=== PATIENT | female | born 1995 | race Caucasian/White ===

== ENCOUNTER 2016-09-28 20:31 | Emergency (ER) | payer BC, OTHER ==
[~2016-09-28] VITALS: Ht 170.2 cm; Wt 60.3 kg
[2016-09-28 20:48] VITALS: TEMP 36.8; Ht 170.2 cm; Wt 60.3 kg
[2016-09-28] MEDS ORDERED: CEFTRIAXONE SOD INJ 1 GM ADDVIAL IV STA (21:05)
[2016-09-28] MEDS ORDERED: KETOROLAC TROMETHAMINE 30 MG/ML VIAL IV STA (21:05)
[2016-09-28] MEDS ORDERED: AZITHROMYCIN 250 MG TAB PO STA (21:05)
[2016-09-28] MEDS ORDERED: SODIUM CHLORIDE 0.9% 1000ML 1,000 ML IV STA (21:05)
[2016-09-28 21:32] LABS: BASO % 0.5 %; BASO ABS # 0.05 K/uL (0-0.2); COMPLETE YES; EOS % 3.8 %; HEMATOCRIT 45.2 % (37-47); IG% 0.3 %; MEAN CELL VOLUME 86.6 fL (80-100); MEAN CORPUSCULAR HEMOGLOBIN 29.3 pg (25-34); MEAN CORPUSCULAR HGB CONC 33.8 g/dl (32-36); MEAN PLATELET VOLUME 10.3 fL (7.4-10.4); MONO % 7.8 %; NEUT % 67.6 %; PLATELET COUNT 256 K/uL (130-400); RED BLOOD COUNT 5.22 M/uL (4.2-5.4); WHITE BLOOD COUNT 10.02 K/uL (4.8-10.8)
[2016-09-28] MEDS ORDERED: BCPILLS PO (21:36)
[2016-09-28] MEDS ORDERED: ISOT1CAP PO (21:37)
[2016-09-28] MEDS ORDERED: ISOT1CAP7 PO (21:44)
[2016-09-28] MEDS ORDERED: ISOT30CA PO (21:45)
[2016-09-28] MEDS ORDERED: NITR1CAP32 PO (21:47)
[2016-09-28 21:48] LABS: ALT/SGPT 16 U/L (12-78); BLOOD UREA NITROGEN 7 mg/dl (7-18); BUN/CREATININE RATIO 6.4 (10-20); CALCIUM 8.9 mg/dl (8.5-10.1); CARBON DIOXIDE 27 mmol/L (21-32); CHLORIDE 104 mmol/L (98-107); GLUCOSE 82 mg/dl (70-99); POTASSIUM 3.2 mmol/L (3.5-5.1); SODIUM 139 mmol/L (136-145)
[2016-09-28] MEDS ORDERED: PHEN-775 PO (21:49)
[2016-09-28 21:51] LABS: ALKALINE PHOSPHATASE 77 U/L (45-117); AST/SGOT 16 U/L (15-37)
[2016-09-28] MEDS ORDERED: SULF800T23 PO (21:51)
[2016-09-28 22:00] LABS: MANUAL MICROSCOPIC REQUIRED? YES; REVIEW REQ? NO
[2016-09-28] MEDS ORDERED: POTASSIUM CHLORIDE 10 MEQ TABCR PO STA (22:00)
[2016-09-28 22:01] LABS: SULFASALICYLIC ACID POS (NEG); URINE APPEARANCE CLOUDY (CLEAR); URINE COLOR ORANGE
[2016-09-28 22:02] LABS: URINE SPECIFIC GRAVITY 1.007 (1.000-1.030)
[2016-09-28 22:05] LABS: URINE RBC >30 /hpf (0-4)
[2016-09-28 22:06] LABS: URINE WBC >30 /hpf (0-5)
[2016-09-28 22:07] LABS: URINE BACTERIA 2+ (NEG); ZZUR CULT IF INDIC CLEAN CATCH YES
--- NOTE | 2016-09-28 22:17 | EMERGENCY ROOM VISIT NOTE ---
History Report prepared by Alea: Zully Figueroa Under the Supervision of: Dr. Neptali Herron M.D. First contact with patient: 20:54 Chief Complaint: URINARY SYMPTOMS Stated Complaint: UTI, MEDS ARE NOT WORKING Nursing Triage Summary: Patient having burning when she urinates, mid lower abdominal pain, frequent urination History of Present Illness The patient is a 21 year old female who presents to the Emergency Room with complaints of an episode of urinary symptoms starting three days ago. The patient states she has had urinary tract infections before and believed that this was one. She reports that she went to [facility] and they gave her medication for a urinary tract infection. She states that usually after one to two doses, the medication starts to work. She reports that as of yesterday they weren't working. She states that she then went back to [facility] to get a different medication that she reports still has provided no relief. She reports that she has spasms in her pelvic region when she urinates and that it cast while urinating. The patient denies the chance of this being an STD, retaining a tampon, back pain, past abdominal surgery, and chance of . The patient also reports that 30 seconds after urinating she experiences a throbbing feeling for 15 seconds. She notes that she is currently on her period and does take a medication for her acne. The patient currently rates her pain as a 4/10 in severity. Source of History: patient Onset: three days ago Position: other (global) Symptom Intensity: 4/10 Quality: other (global) Timing: other (episode) Associated Symptoms: No back pain Note: The patient complains of pelvic spasms and throbbing. Review of Systems See HPI for pertinent positives & negatives. A total of 10 systems reviewed and were otherwise negative. Past Medical & Surgical Medical Problems: (1) Asthma (2) Hx: UTI (urinary tract infection) Surgical Problems: (1) History of wisdom tooth extraction Family History No pertinent family history Social History Smoking Status: Never Smoker Smokeless Tobacco Use: No Alcohol Use: occasionally Marital Status: single Housing Status: lives with roommate Occupation Status: [employer] Current/Historical Medications Scheduled Control Pills ( Control Pills), 1 TAB PO DAILY Ciprofloxacin Hcl (Cipro), 1 TAB PO BID Isotretinoin (Myorisan), 40 MG PO DAILY Nitrofurantoin Macrocrystals (Macrodantin), 100 MG PO BID Phenazopyridine Hcl (Pyridium), 200 MG PO TID Sulfa/Trimethoprim (Bactrim Ds 800MG/160MG), 1 TAB PO BID Allergies Uncoded Allergies: NKA (Allergy, Unknown, 02/18/03) Physical Exam Vital Signs Date Time Temp Pulse Resp B/P (MAP) Pulse Ox O2 Delivery O2 Flow Rate FiO2 09/28/16 23:38 74 18 132/90 97 09/28/16 23:19 65 09/28/16 22:00 92 18 123/76 100 Room Air 09/28/16 20:48 36.8 87 18 118/75 97 Room Air Physical Exam GENERAL: Patient is a healthy-appearing well-nourished HEAD: Normocephalic atraumatic EYES: Ocular movements intact pupils equal and react to light OROPHARYNX mucous membranes are moist no exudates present no erythema or edema present NECK: Supple no nuchal rigidity CHEST: Good equal expansion LUNGS: Clear and equal to auscultation CARDIAC: Normal S1 and S2 ABDOMEN: Soft nontender no guarding BACK: No CVA tenderness EXTREMITIES: No pain upon palpation normal muscle strength in all groups no clubbing cyanosis or edema NEURO: Patient is following commands and answering questions appropriately. Alert and oriented x3 Cranial Nerves 2-12 grossly intact Medical Decision & Procedures ER Provider Diagnostic Interpretation: Radiology results as stated below per my review and radiologist interpretation: (RENAL)RETROPERITONEA COMP HISTORY: Pain Pt c/o bladder spasms COMPARISON: None. FINDINGS: Right kidney: Maximum dimension 10.0 cm Normal corticomedullary differentiation and cortical thickness. No evidence for hydronephrosis Left kidney: Maximum dimension 10.8 cm. Normal corticomedullary differentiation and cortical thickness. No evidence for hydronephrosis Bladder: Mild/moderate bladder wall thickening with a small amount of bladder debris IMPRESSION: 1. Normal renal ultrasound. 2. Mild/moderate bladder wall thickening with a small amount of contained debris The above report was generated using voice recognition software. It may contain grammatical, syntax or spelling errors. Electronically signed by: Amadou Conrad M.D. 09/28/2016 10:43 PM Dictated Date/Time: 09/28/2016 10:42 PM KUB CLINICAL HISTORY: Pt c/o bladed spasms pain COMPARISON STUDY: No previous studies for comparison. FINDINGS: Nonobstructive bowel pattern. Minimal nonobstructive ileus. Vague multiplicity of calcifications in the right upper quadrant. This may relate to bowel content, versus gallbladder or pancreas. No significant pelvic calcifications. IMPRESSION: 1. Punctate calcifications superior to the right kidney this may be simply bowel content, although gallbladder or pancreatic calcifications may present in similar fashion. 2. Minimal nonobstructive ileus. The above report was generated using voice recognition software. It may contain grammatical, syntax or spelling errors. Electronically signed by: Amadou Conrad M.D. 09/28/2016 10:55 PM Dictated Date/Time: 09/28/2016 10:53 PM Laboratory Results 09/28/16 21:15 Red Blood Count 5.22, Mean Corpuscular Volume 86.6, Mean Corpuscular Hemoglobin 29.3, Mean Corpuscular Hemoglobin Concent 33.8, Mean Platelet Volume 10.3, Neutrophils (%) (Auto) 67.6, Lymphocytes (%) (Auto) 20.0, Monocytes (%) (Auto) 7.8, Eosinophils (%) (Auto) 3.8, Basophils (%) (Auto) 0.5, Neutrophils # (Auto) 6.78, Lymphocytes # (Auto) 2.00, Monocytes # (Auto) 0.78, Eosinophils # (Auto) 0.38, Basophils # (Auto) 0.05 09/28/16 21:15 Test 09/28/16 21:15 White Blood Count 10.02 K/uL (4.8-10.8) Red Blood Count 5.22 M/uL (4.2-5.4) Hemoglobin 15.3 g/dL (12.0-16.0) Hematocrit 45.2 % (37-47) Mean Corpuscular Volume 86.6 fL (80-100) Mean Corpuscular Hemoglobin 29.3 pg (25-34) Mean Corpuscular Hemoglobin Concent 33.8 g/dl (32-36) Platelet Count 256 K/uL (130-400) Mean Platelet Volume 10.3 fL (7.4-10.4) Neutrophils (%) (Auto) 67.6 % Lymphocytes (%) (Auto) 20.0 % Monocytes (%) (Auto) 7.8 % Eosinophils (%) (Auto) 3.8 % Basophils (%) (Auto) 0.5 % Neutrophils # (Auto) 6.78 K/uL (1.4-6.5) Lymphocytes # (Auto) 2.00 K/uL (1.2-3.4) Monocytes # (Auto) 0.78 K/uL (0.11-0.59) Eosinophils # (Auto) 0.38 K/uL (0-0.5) Basophils # (Auto) 0.05 K/uL (0-0.2) RDW Standard Deviation 40.0 fL (36.4-46.3) RDW Coefficient of Variation 12.5 % (11.5-14.5) Immature Granulocyte % (Auto) 0.3 % Immature Granulocyte # (Auto) 0.03 K/uL (0.00-0.02) Urine Color ORANGE Urine Appearance CLOUDY (CLEAR) Urine pH (4.5-7.5) Urine Specific [place] 1.007 (1.000-1.030) Urine Protein POS (NEG) Urine Glucose (UA) (NEG) Urine Ketones (NEG) Urine Occult Blood (NEG) Urine Nitrite (NEG) Urine Bilirubin (NEG) Urine Urobilinogen (NEG) Urine Leukocyte Esterase (NEG) Urine RBC >30 /hpf (0-4) Urine WBC >30 /hpf (0-5) Urine Epithelial Cells 5-10 /lpf (0-5) Urine Renal Cells 0-5 /lpf (FEW) Urine Bacteria 2+ (NEG) Urine Test NEG (NEG) Anion Gap 8.0 mmol/L (3-11) Est Creatinine Clear Calc Drug Dose 77.0 ml/min Estimated GFR () 83.1 Estimated GFR (Non- 71.7 BUN/Creatinine Ratio 6.4 (10-20) Calcium Level 8.9 mg/dl (8.5-10.1) Total Bilirubin 0.4 mg/dl (0.2-1) Direct Bilirubin < 0.1 mg/dl (0-0.2) Aspartate Amino Transf (AST/SGOT) 16 U/L (15-37) Alanine Aminotransferase (ALT/SGPT) 16 U/L (12-78) Alkaline Phosphatase 77 U/L (45-117) Total Protein 7.5 gm/dl (6.4-8.2) Albumin 3.7 gm/dl (3.4-5.0) Lipase 272 U/L (73-393) Labs reviewed by ED physician. Medications Administered Medications (Trade) Dose Ordered Sig/Raghu Route Start Time Stop Time Status Last Admin Dose Admin Sodium Chloride 1,000 ml @ 999 mls/hr Q1H1M STAT IV 09/28/16 21:05 09/28/16 22:05 DC 09/28/16 21:21 999 MLS/HR Ketorolac Tromethamine (Toradol Inj) 30 mg NOW STAT IV 09/28/16 21:05 09/28/16 21:07 DC 09/28/16 21:34 30 MG Ceftriaxone Sodium (Rocephin Inj) 1 gm NOW STAT IV 09/28/16 21:05 09/28/16 21:07 DC 09/28/16 21:34 1 GM Azithromycin (Zithromax Tab) 1,000 mg NOW STAT PO 09/28/16 21:05 09/28/16 21:07 DC 09/28/16 21:33 1,000 MG Potassium Chloride (Klor-Con M10) 80 meq NOW STAT PO 09/28/16 22:00 09/28/16 22:01 DC 09/28/16 22:09 80 MEQ ED Course 2058: Past medical records reviewed. The patient was evaluated in room B9. A complete history and physical examination was performed. 2104: Ordered Zithromax Tab 1000 mg PO, Rocephin Inj 1 gm IV, Toradol Inj 30 mg IV, NSS 1000 ml @ 999 mls/hr IV. 0: Ordered Potassium Chloride 80 meq PO. 2322: Upon reexamination the patient is resting comfortably. I discussed results and treatment plan with the patient. She verbalizes agreement and understanding. The patient is ready for discharge. Medical Decision Medication Reconciliation: I attest that I have personally reviewed the patient' s current medication list Blood Pressure Screening: Patient was found to have normal blood pressure on screening and does not require follow up. Differential diagnosis: Etiologies such as appendicitis, diverticulitis, PUD, biliary pathology, UTI, pancreatitis, obstruction, mesenteric ischemia, aortic pathology, infections, inflammatory bowel disease, renal colic, as well as others were entertained. This is a 21-year-old female who presents emergency department complaining of urinary tract infection that has not gotten better. The patient is still having a large amount of stinging and burning despite being on Bactrim for at least 24 hours and another antibiotic for that. Based on the patient's complaints an IV was established and the patient was given normal saline bolus along with Rocephin. She was sent for an ultrasound of her kidneys and bladder. The patient does have debris in her bladder. She was also given azithromycin 1 g. Impression Primary Impression: Urinary tract infection Scribe Attestation The scribe's documentation has been prepared under my direction and personally reviewed by me in its entirety. I confirm that the note above accurately reflects all work, treatment, procedures, and medical decision making performed by me. Departure Information Dispostion Home / Self-Care Prescriptions Ciprofloxacin Hcl (CIPRO) 500 Mg Tab 1 TAB PO BID for 7 Days, #14 TAB Prov: Neptali Herron MD 09/28/16 Referrals No Doctor, Assigned (PCP) Forms HOME CARE DOCUMENTATION FORM, IMPORTANT VISIT INFORMATION Patient Instructions My [facility] Additional Instructions Take 600 mg Ibuprofen every 6 hours Take 1000 mg Tylenol every 6 hours Increase fluids next 48 hours Culture results are usually available in approx 48 hours You have been examined and treated today on an emergency basis only. This is not a substitute for, or an effort to provide, complete comprehensive medical care. It is impossible to recognize and treat all injuries or illnesses in a single emergency department visit. It is therefore important that you follow up closely with [facility]. Call as soon as possible for an appointment. Thank you for your time and consideration. I look forward to speaking with you again soon. Please don't hesitate to call us if you have any questions. Problem Qualifiers Primary Impression: Urinary tract infection Urinary tract infection type: acute cystitis Hematuria presence: with hematuria Qualified Codes: N30.01 - Acute cystitis with hematuria
--- NOTE | 2016-09-28 22:45 | DIAGNOSTIC IMAGING REPORT ---
(RENAL)RETROPERITONEA COMP HISTORY: Pain Pt c/o bladder spasms COMPARISON: None. FINDINGS: Right kidney: Maximum dimension 10.0 cm Normal corticomedullary differentiation and cortical thickness. No evidence for hydronephrosis Left kidney: Maximum dimension 10.8 cm. Normal corticomedullary differentiation and cortical thickness. No evidence for hydronephrosis Bladder: Mild/moderate bladder wall thickening with a small amount of bladder debris IMPRESSION: 1. Normal renal ultrasound. 2. Mild/moderate bladder wall thickening with a small amount of contained debris The above report was generated using voice recognition software. It may contain grammatical, syntax or spelling errors. Electronically signed by: Amadou Conrad M.D. 09/28/2016 10:43 PM Dictated Date/Time: 09/28/2016 10:42 PM
--- NOTE | 2016-09-28 22:56 | DIAGNOSTIC IMAGING REPORT ---
KUB CLINICAL HISTORY: Pt c/o bladed spasms pain COMPARISON STUDY: No previous studies for comparison. FINDINGS: Nonobstructive bowel pattern. Minimal nonobstructive ileus. Vague multiplicity of calcifications in the right upper quadrant. This may relate to bowel content, versus gallbladder or pancreas. No significant pelvic calcifications. IMPRESSION: 1. Punctate calcifications superior to the right kidney this may be simply bowel content, although gallbladder or pancreatic calcifications may present in similar fashion. 2. Minimal nonobstructive ileus. The above report was generated using voice recognition software. It may contain grammatical, syntax or spelling errors. Electronically signed by: Amadou Conrad M.D. 09/28/2016 10:55 PM Dictated Date/Time: 09/28/2016 10:53 PM
[2016-09-28] MEDS ORDERED: CIPR-255 PO (23:27)
[2016-09-28 23:38] VITALS: BP 132/90; PULSE 74; O2SAT 97
== END 2016-09-28 23:38 | disposition home or self-care (01) ==
LOC: C.EDB 20:33
DX: N39.0 Urinary tract infection, site not specified (principal); J45.909 Unspecified asthma, uncomplicated; Z79.3 Long term (current) use of hormonal contraceptives; Z79.899 Other long term (current) drug therapy